=== PATIENT | female | born 1985 ===

== ENCOUNTER 2016-10-31 18:41 | Emergency (ER) | payer MEDICAID, OTHER ==
[2016-10-31 18:48] VITALS: BP 118/79; PULSE 106; RESP 20; O2SAT 98
--- NOTE | 2016-10-31 19:20 | ED PDOC ---
Addendum entered and electronically signed by Cris Arroyo PA-C 11/03/16 16:01: Addendum Addendum: 11/03/16 16:00 Culture (+). Called patient at 1600. Left voicemail to call back ER. Original Note: HPI: CCC, URI, Sore Throat Time Seen by Provider: 10/31/16 19:08 Chief Complaint (Nursing): Abdominal Pain Chief Complaint (Provider): Cough/Fever/Diarrhea History Per: Patient, Family History/Exam Limitations: no limitations Onset/Duration Of Symptoms: Days (4) Additional Complaint(s): 30F p/w fever, headache, diarrhea x4 days(3x/day), dry cough and sore throat x3 days, and NBNB vomiting x2 today but has been able to continue PO intake although decreased. She has never measured her temperature, simply took Tylenol when she "felt bad". She has had sick contacts as both children have been treated with antibiotics for throat infection but have since recovered. She denies any SOB, chest pain/palpitations, dysuria. LMP: 10/29/16 PMH: None PSH: Appendectomy PFH: NC ALL: NKDA Meds: Tylenol Smoke: Denies Alcohol: Socially Past Medical History Vital Signs: Last Vital Signs Temp 38.3 C H 10/31/16 22:11 Pulse 106 H 10/31/16 18:46 Resp 20 10/31/16 18:46 BP 118/79 10/31/16 18:46 Pulse Ox 98 10/31/16 22:31 - Surgical History Surgical History: Appendectomy - Family History Family History: States: No Known Family Hx - Allergies Allergies/Adverse Reactions: Allergies Allergy/AdvReac Type Severity Reaction Status Date / Time No Known Allergies Allergy Verified 10/31/16 18:45 Review of Systems ROS Statement: Except As Marked, All Systems Reviewed And Found Negative (As per HPI) Physical Exam - Reviewed Vital Signs Reviewed: Yes (Febrile, Tachycardia) - Physical Exam Appears: Positive for: Non-toxic, No Acute Distress Head Exam: Positive for: ATRAUMATIC, NORMAL INSPECTION Skin: Positive for: Normal Color, Warm, Dry Eye Exam: Positive for: Normal appearance, EOMI, PERRL. Negative for: Conjunctival injection ENT: Positive for: TM Is/Are (b/l full w/o erythema), Hearing Is (intact), Pharyngeal Erythema, Other (decreased oral secretions). Negative for: Sinus Pain/Drainage, Nasal Congestion, Tonsillar Exudate, Tonsillar Swelling Neck: Positive for: Normal, Supple Cardiovascular/Chest: Positive for: Regular Rate, Rhythm. Negative for: JVD, Murmur Respiratory: Positive for: Normal Breath Sounds. Negative for: Crackles, Rales , Rhonchi, Wheezing Gastrointestinal/Abdominal: Positive for: Normal Exam, Bowel Sounds, Soft. Negative for: Tenderness Back: Negative for: L CVA Tenderness, R CVA Tenderness Extremity: Positive for: Normal ROM, Capillary Refill. Negative for: Tenderness , Pedal Edema, Calf Tenderness Neurologic/Psych: Positive for: Alert, Oriented, Mood/Affect (wnl). Negative for: Motor/Sensory Deficits - Laboratory Results Result Diagrams: 10/31/16 19:27 10/31/16 19:27 Interpretation Of Abn Labs: Normocytic anemia, left shift Interpretation Of Abnormal: currently on menstrual cycle, no leukocytosis w/ left shift possible stress response Urine POC: Negative Urine dip results: Positive for: Blood (on menstrual) - ECG O2 Sat by Pulse Oximetry: 98 Pulse Ox Interpretation: Normal - Progress Condition: Unchanged Medical Decision Making Medical Decision Making: Viral vs. bacterial infection. - CBC - BMP - Influenza, Rapid Strep - Upreg - Urine dip - Tylenol - 1L NS Bolus - PO at bedside, push hydration Pt re-checked: Upreg: neg Urine dip: neg except blood likely menstrual CBC: shift w/o leukocytosis BMP: hypokalemia c/w diarrhea, BUN/Cr wnl Influenza: neg Rapid Strep: neg Pt Re-checked: Temp unchanged 38.8 after Tylenol @1945 Pt re-checked: Coughing more- Promethazine/codeine, 5ml Ibuprofen Disposition - Clinical Impression Clinical Impression: Viral infection, Gastroenteritis - Patient ED Disposition Is Patient to be Admitted: No Counseled Patient/Family Regarding: Studies Performed, Diagnosis - Disposition Referrals: [facility] [Outside] Disposition: Routine/Home Disposition Time: 22:17 Condition: IMPROVED Instructions: Gastroenteritis (DC), Viral Syndrome (ED) Print Language: [id number]
[2016-10-31 19:35] LABS: BASO % 0.5 % (0.0-2.0); EOS % 0.3 % (0.0-4.0); HEMATOCRIT 34.7 % (34.0-47.0); LYMPH # 0.6 K/uL (1.0-4.3); LYMPH % 13.6 % (20.0-40.0); MEAN CELL VOLUME 86.7 fl (81.0-99.0); MEAN CORPUSCULAR HEMOGLOBIN 28.8 pg (27.0-31.0); MEAN CORPUSCULAR HGB CONC 33.2 g/dL (33.0-37.0); MONO # 0.1 K/uL (0.0-0.8); MONO % 2.1 % (0.0-10.0); NEUT # 3.9 K/uL (1.8-7.0); NEUT % 83.5 % (50.0-75.0); NRBC % 0.2 % (0.0-0.0); RED CELL DISTRIBUTION WIDTH 13.5 % (11.5-14.5); WHITE BLOOD COUNT 4.6 K/uL (4.8-10.8)
[2016-10-31 19:45] LABS: BLOOD UREA NITROGEN 9 mg/dl (7-17); CALCIUM 8.1 mg/dL (8.4-10.2); CARBON DIOXIDE 21 mmol/L (22-30); CHLORIDE 109 mmol/L (98-107); GFR AFRICAN-AMERICAN > 60; GLUCOSE,RANDOM 104 mg/dL (65-105); POTASSIUM 3.3 MMOL/L (3.6-5.0); SODIUM 146 mmol/l (132-148)
[2016-10-31] MEDS ORDERED: Sodium Chloride 0.9% 1,000 ML IV STA (19:55)
[2016-10-31] MEDS ORDERED: Potassium Chloride 20 mEq ER Tab PO ONE ×2 (20:02→21:55)
[2016-10-31] MEDS ORDERED: Promethazine/Cod 6.25mg-10mg/5ml Syr UD PO ONE (21:50)
[2016-10-31] MEDS ORDERED: Promethazine/Cod 6.25mg-10mg/5ml Syr UD ONE (21:55)
[2016-10-31 22:11] VITALS: TEMP 101
== END 2016-10-31 22:33 | disposition home or self-care (01) ==
LOC: H.ER 18:41
DX: B34.9 Viral infection, unspecified (principal); K52.9 Noninfective gastroenteritis and colitis, unspecified
CPT/HCPCS: 80048; 81025; 85025; 87070; 87430; 87804; 99284; J7040